=== PATIENT | female | born 1990 | race Caucasian/White ===

== ENCOUNTER 2020-06-30 18:46 | Emergency (ER) | payer BC, SELFPAY ==
[2020-06-30 18:49] VITALS: BP 148/77; PULSE 76; RESP 20; TEMP 36.5; O2SAT 100; BMI 30.4
--- NOTE | 2020-06-30 20:04 | ED_ITS ---
HPI - Headache General Chief Complaint: Headache Stated Complaint: STROKE LIKE? Time Seen by Provider: 06/30/20 20:04 Source: patient Mode of arrival: ambulatory Limitations: no limitations History of Present Illness HPI Narrative: Patient is 5 months with history of migraine headache last time when she had a headache while she was in high school been doing good since then today while driving she noticed all of a sudden right-sided headache with tunnel vision and felt some pins and needle tingling in the left fast side of face and left arm which has gone now but headache is still persisting 5/10 at this time no seizure activity no other focal deficit patient had slight nausea no vomiting no abdominal pain no vaginal bleed MD elicited complaint: migraine Onset (ago): hour(s) Related Data Allergies Allergy/AdvReac Type Severity Reaction Status Date / Time No Known Allergies Allergy Verified 06/30/20 20:13 Review of Systems Review of Systems: Constitutional : No Weight loss, No Fever, No Chills ENT/Mouth : No sore throat, No Rhinorrhea Eyes: No Eye Pain, No Swelling Cardiovascular : No Chest Pain, no palpitations Respiratory : No Cough, No Sputum, no shortness of breath Gastrointestinal : +Nausea, No Vomiting, No Diarrhea, No abdominal Pain, no black stools Genitourinary : No Dysuria, No Urinary Frequency Musculoskeletal : No joint pain, No Myalgias, No Joint Swelling Skin : No Skin Lesions, No rash Neuro : No Weakness, No Numbness, No Dizziness, + Headache Psych : No Anxiety/Panic, No Depression Heme/Lymph: No Bruising, No Lymphadenopathy Endocrine : No Polyuria, No Polydipsia All other systems reviewed and are negative [facility] Past Medical History Medical History (Updated 06/30/20 @ 20:50 by Zeferino Browning MD) HTN (hypertension) Meningitis Migraine Social History Social History Advance Directives: No Advance Directives Information Provided: No Physical Exam Vital Signs: Vital Signs: Last Vital Signs Temp 97.7 F 06/30/20 18:49 Pulse 75 06/30/20 20:53 Resp 16 06/30/20 20:53 BP 134/79 06/30/20 20:53 Pulse Ox 100 06/30/20 20:53 Body Mass Index 30.4 Const: General: comfortable, no acute distress and well developed Orientation/consciousness: patient oriented x3 HENMT: Head: Yes normal to inspection, Yes normocephalic and Yes atraumatic Ears: hearing grossly normal bilaterally and TM's normal bilaterally Eyes: General: appearance normal, both eyes and all related structures Conjunctivae: conjunctivae normal Sclerae: sclerae normal Pupils: Equal, round and reactive pupils present EOM: EOMs intact bilaterally Neck: Neck: Yes full ROM, Yes no lymphadenopathy and Yes no meningeal signs Chest: Chest palpation & inspection: normal inspection of the chest and normal palpation of entire chest wall Resp: Effort & Inspection: normal respiratory effort Auscultation: clear to auscultation bilaterally Cardio: Palpation: normal PMI Rate: regular rate Rhythm: regular rhythm Heart sounds: S1 normal heart sound present and S2 normal heart sound present Peripheral pulses: Peripheral pulses 2+ throughout GI: Inspection: Yes normal to inspection Palpation (GI): Soft to palpation and nontender Auscultation: normal bowel sounds Neuro: General: patient oriented x3, gait normal, tone normal, moves all extremities, Normal light touch and pain sensation, no meningeal signs, no focal motor deficits and CN's II-XI intact bilaterally Cranial nerves: Yes Equal, round and reactive pupils present MDM - Headache MDM Narrative Medical decision making narrative: Patient with history of migraine comes here with typical headache likely migraine with slight numbness and tingling on the left side which got improved with the headache improved no focal deficit on arrival patient responded to Tylenol and Atarax and back to baseline advised to follow with PCP Discharge Plan Discharge Clinical Impression: Migraine Qualifiers: Migraine type: with aura Status migrainosus presence: without status migrainosus Intractability: not intractable Qualified Code(s): G43.109 - Migraine with aura, not intractable, without status migrainosus Patient Disposition: Home, Self-Care Instructions: Migraine Headache (ED) Additional Instructions: Take Tylenol for headache follow with PCP if not better Discharge Date/Time: 06/30/20 20:58
[2020-06-30] MEDS: Acetaminophen 325 MG TABLET 650 MG PO (20:31)
[2020-06-30] MEDS: hydrOXYzine HCL 25 MG TABLET PO (20:31)
--- NOTE | 2020-06-30 20:32 | PC.NURSE ---
Medicated per MAR.
--- NOTE | 2020-06-30 20:49 | PC.NURSE ---
Pt requesting to leave, states she is feeling better. MD aware.
[2020-06-30 20:53] VITALS: BP 134/79; PULSE 75; RESP 16; O2SAT 100
== END 2020-06-30 20:58 | disposition home or self-care (01) ==
PROVIDERS: Emergency Provider Internal Medicine; PCP Family Medicine
DX: G43.909 Migraine, unspecified, not intractable, without status migrainosus (principal); I10 Essential (primary) hypertension
CPT/HCPCS: 99283; 99284